=== PATIENT | male | born 1965 | race African-American/Black ===

== ENCOUNTER 2017-01-11 11:29 | Emergency (ER) | payer OTHER ==
[~2017-01-11] VITALS: Ht 170.2 cm; Wt 69.9 kg
[2017-01-11 14:26] LABS: BASOPHIL % 0.6 % (0-2); PLATELET COUNT 174 x10^3mcL (130-400); RED CELL DISTRIBUTION WIDTH 14.4 % (11.5-14.5)
[2017-01-11 14:34] LABS: CALCIUM 9.4 mg/dL (8.5-10.1); CARBON DIOXIDE 28.7 mmol/L (21-32); CHLORIDE SERUM 103 mmol/L (98-107); GFR1 > 60 mL/min; GLUCOSE SERUM 107 mg/dL (74-106); SODIUM SERUM 140 mmol/L (136-145)
[2017-01-11 14:38] LABS: ALBUMIN 3.9 g/dL (3.4-5.0); ALKALINE PHOSPHATASE 61 U/L (46-116); ALT/SGPT 39 U/L (16-63); AST/SGOT 43 U/L (15-37); BILIRUBIN TOTAL 0.6 mg/dL (0.20-1.00); LIPASE 184 IU/L (73-393)
[2017-01-11 16:07] VITALS: BP 169/79
== END 2017-01-11 16:07 | disposition home or self-care (01) ==
LOC: ED 11:29
PROVIDERS: Emergency Medicine
DX: R10.32 Left lower quadrant pain (principal); K63.89 Other specified diseases of intestine
CPT/HCPCS: J7030; Q9967